=== PATIENT | male | born 1975 | race Hispanic/Latino ===

== ENCOUNTER 2019-12-29 10:37 | Emergency (ER) | payer SELFPAY ==
[2019-12-29] MEDS ORDERED: DIPHENHYDRAMINE 25 MG TAB/CAP ONE (11:47)
--- NOTE | 2019-12-29 12:01 | ER ---
Nurse's Notes [facility] Name: Ang Agrawal Age: 44 yrs Sex: Male : 1975 Arrival Date: 12/29/2019 Time: 10:40 Bed 17 Private MD: Diagnosis: Insect bite (nonvenomous) of right forearm Presentation: 12/28 11:12 Chief complaint: Patient states: thinks he was stung by an insect about an hour ago, iw has swollen red area to right forearm and has pain up into his arm pit. Coronavirus screen: At this time, the client does not indicate any symptoms associated with coronavirus-19. Ebola Screen: Patient negative for fever greater than or equal to 101.5 degrees Fahrenheit, and additional compatible Ebola Virus Disease symptoms Patient denies exposure to infectious person. Patient denies travel to an Ebola-affected area in the 21 days before illness onset. No symptoms or risks identified at this time. Initial Sepsis Screen: Does the patient meet any 2 criteria? No. Patient's initial sepsis screen is negative. Does the patient have a suspected source of infection? No. Patient's initial sepsis screen is negative. Risk Assessment: Do you want to hurt yourself or someone else? Patient reports no desire to harm self or others. Onset of symptoms was December 29, 2019. 11:12 Method Of Arrival: Ambulatory 11:12 Acuity: JUNIE 5 iw Triage Assessment: 12:37 Bite description: bite sustained to dorsal aspect of right forearm is from insect by an ll1 unknown animal, animal information: vaccination(s) is not applicable. General: Appears uncomfortable, Behavior is calm, cooperative. Historical: - Allergies: 11:14 No Known Allergies; - Home Meds: 11:14 None [Active]; iw - PMHx: 11:14 None; iw - PSHx: 11:14 None; iw - Immunization history:: Adult Immunizations. - Social history:: Smoking status: Patient denies any tobacco usage or history of. Screenin:36 Abuse screen: Denies threats or abuse. Nutritional screening: No deficits noted. ll1 Tuberculosis screening: No symptoms or risk factors identified. Fall Risk None identified. Total Lipscomb Fall Scale indicates No Risk (0-24 pts). Assessment: 11:30 General: Appears in no apparent distress. Behavior is calm, cooperative, appropriate ll1 for age. Pain: Complains of pain in dorsal aspect of right forearm Quality of pain is described as burning, aching, Pain began 2 hours ago. Neuro: No deficits noted. Cardiovascular: No deficits noted. Respiratory: No deficits noted. Derm: Skin is intact, has lesions on R FA Skin is pink, warm \T\ dry. Wound noted dorsal aspect of right forearm Wound is insect bite to R FA, skin is red, raised. + itching. Reports burning, pain. Injury Description: Bite. 12:30 Reassessment: Patient and/or family updated on plan of care and expected duration. Pain ll1 level reassessed. Patient is alert, oriented x 3, equal unlabored respirations, skin warm/dry/pink. Vital Signs: 11:12 BP 122 / 85; Pulse 76; Resp 16; Temp 98.3; Pulse Ox 100% on R/A; iw 12:32 BP 114 / 82; Pulse 62; Resp 16; Pulse Ox 100% ; ll1 12:52 BP 121 / 84; Pulse 68; Resp 17; ll1 ED Course: 10:40 Patient arrived in ED. mr 11:14 Triage completed. iw 11:14 Arm band placed on. iw 11:19 Duke Villanueva, CULTURE MEDIA LABORATORY ASSISTANT is PHCP. pm1 11:19 Adeel Joy MD is Attending Physician. pm1 11:22 Ta Chery, KAVEH is Primary Nurse. ll1 12:37 Patient has correct armband on for positive identification. Bed in low position. Call ll1 light in reach. Side rails up X 1. Pulse ox on. NIBP on. 12:53 No provider procedures requiring assistance completed. Patient did not have IV access ll1 during this emergency room visit. Administered Medications: 11:36 Drug: Benadryl 50 mg Route: PO; ll1 12:32 Follow up: Response: No adverse reaction; RASS: Alert and Calm (0) ll1 12:32 Drug: TORadol 60 mg Route: IM; Site: right vastus lateralis; ll1 12:52 Follow up: Response: No adverse reaction; Pain is decreased; RASS: Alert and Calm (0) ll1 Outcome: 12:01 Discharge ordered by . pm1 12:53 Patient left the ED. ll1 12:53 Discharged to home ambulatory. ll1 12:53 Condition: stable 12:53 Discharge instructions given to patient, Instructed on discharge instructions, follow up and referral plans. medication usage, Demonstrated understanding of instructions, follow-up care, medications, Prescriptions given X 1. Signatures: Priyanka Khan Irene RN RN iw Duke Villanueva, ES CULTURE MEDIA LABORATORY ASSISTANT pm1 Ta Chery RN RN ll1
--- NOTE | 2019-12-29 12:02 | EDPHYS ---
Physician Documentation [facility] Name: Ang Agrawal Age: 44 yrs Sex: Male : 1975 Arrival Date: 12/29/2019 Time: 10:40 Bed 17 Private MD: ED Physician Adeel Joy HPI: 12/28 11:31 This 44 yrs old Male presents to ER via Ambulatory with complaints of Insect pm1 Bite. 11:31 Onset: The symptoms/episode began/occurred 1 hour(s) ago. pm1 11:31 The patient's rash thought to be caused by insect bites. The rash is located on the pm1 dorsal aspect of right forearm. The rash can be described as raised. Associated signs and symptoms: Pertinent positives: pain radiation up right arm to the armpit. Severity of symptoms: in the emergency department the symptoms are unchanged. Treatment given at home: None. The patient has not experienced similar symptoms in the past. It is unknown whether or not the patient has recently seen a physician. Historical: - Allergies: 11:14 No Known Allergies; iw - Home Meds: 11:14 None [Active]; iw - PMHx: 11:14 None; iw - PSHx: 11:14 None; iw - Immunization history:: Adult Immunizations. - Social history:: Smoking status: Patient denies any tobacco usage or history of. ROS: 11:31 Constitutional: Negative for fever, chills, and weight loss, Cardiovascular: Negative pm1 for chest pain, palpitations, and edema, Respiratory: Negative for shortness of breath, cough, wheezing, and pleuritic chest pain, Abdomen/GI: Negative for abdominal pain, nausea, vomiting, diarrhea, and constipation, Back: Negative for injury and pain. 11:31 Neuro: Negative for headache, weakness, numbness, tingling, and seizure. 11:31 MS/extremity: Positive for pain, swelling, of the dorsal aspect of right forearm. 11:31 Skin: Positive for swelling, of the dorsal aspect of right forearm. Exam: 11:31 Constitutional: This is a well developed, well nourished patient who is awake, alert, pm1 and in no acute distress. Head/Face: Normocephalic, atraumatic. 11:31 Back: No spinal tenderness. No costovertebral tenderness. Full range of motion. 11:31 Cardiovascular: Exam negative for acute changes, Rate: normal, Rhythm: regular, Pulses: no pulse deficits are appreciated. 11:31 Respiratory: Exam negative for acute changes, respiratory distress, shortness of breath. 11:31 Skin: Appearance: normal except for affected area, rash a mild rash is noted, consistent with contact dermatitis, on the dorsal aspect of right forearm. 11:31 Neuro: Exam negative for acute changes, Orientation: is normal, Mentation: is normal, Motor: is normal, moves all fours. Vital Signs: 11:12 BP 122 / 85; Pulse 76; Resp 16; Temp 98.3; Pulse Ox 100% on R/A; iw 12:32 BP 114 / 82; Pulse 62; Resp 16; Pulse Ox 100% ; ll1 12:52 BP 121 / 84; Pulse 68; Resp 17; ll1 MDM: 11:19 Patient medically screened. pm1 11:31 ED course: Patient with picture of asp caterpillar that he smashed after it stung him pm1 in the right forearm. 11:45 Data reviewed: vital signs. Data interpreted: Pulse oximetry: on room air is 100 %. pm1 Interpretation: normal. 12:00 Counseling: I had a detailed discussion with the patient and/or guardian regarding: the pm1 historical points, exam findings, and any diagnostic results supporting the discharge/admit diagnosis, the need for outpatient follow up, to return to the emergency department if symptoms worsen or persist or if there are any questions or concerns that arise at home. 12:26 ED course: Patient reports continued pain with asp sting. Will order Toradol. pm1 Administered Medications: 11:36 Drug: Benadryl 50 mg Route: PO; ll1 12:32 Follow up: Response: No adverse reaction; RASS: Alert and Calm (0) ll1 12:32 Drug: TORadol 60 mg Route: IM; Site: right vastus lateralis; ll1 12:52 Follow up: Response: No adverse reaction; Pain is decreased; RASS: Alert and Calm (0) ll1 Disposition: 12/29 08:58 Co-signature as Attending Physician, Adeel Joy MD I agree with the assessment and kellen plan of care. Disposition: 12/29/19 12:01 Discharged to Home. Impression: Insect bite (nonvenomous) of right forearm. - Condition is Stable. - Discharge Instructions: Insect Bite. - Prescriptions for Benadryl 25 mg Oral Capsule - take 1 capsule by ORAL route every 6 hours As needed; 30 tablet. - Medication Reconciliation Form, Thank You Letter, Antibiotic Education, Prescription Opioid Use form. - Follow up: Emergency Department; When: As needed; Reason: Worsening of condition. Follow up: Private Physician; When: 2 - 3 days; Reason: Recheck today's complaints, Continuance of care, Re-evaluation by your physician. - Problem is new. - Symptoms have improved. Signatures: Adeel Joy MD MD cha Williams, Irene, RN RN iw Duke Villanueva NP [employer]ADLEY [employer]WMEMBER pm1 Ta Chery RN RN ll1 Corrections: (The following items were deleted from the chart) 12/28 12:53 12:01 12/29/2019 12:01 Discharged to Home. Impression: Insect bite (nonvenomous) of ll1 right forearm. Condition is Stable. Forms are Medication Reconciliation Form, Thank You Letter, Antibiotic Education, Prescription Opioid Use. Follow up: Emergency Department; When: As needed; Reason: Worsening of condition. Follow up: Private Physician; When: 2 - 3 days; Reason: Recheck today's complaints, Continuance of care, Re-evaluation by your physician. Problem is new. Symptoms have improved. pm1
[2019-12-29] MEDS ORDERED: KETOROLAC 30 MG/ML INJ ONE (12:41)
[2019-12-29 13:27] VITALS: TEMP 98.3; O2SAT 100
[2019-12-29 13:29] VITALS: BP 121/84
== END 2019-12-29 12:53 | disposition home or self-care (01) ==
LOC: ER 10:37
DX: S50.861A Insect bite (nonvenomous) of right forearm, initial encounter (principal)
CPT/HCPCS: 96372; 99283

== ENCOUNTER 2020-08-19 13:10 | Emergency (ER) | payer OTHER, SELFPAY ==
--- OUTSIDE RECORDS SUMMARY | 2020-08-19 13:14 | XMS REPORT | Continuity of Care Document ---
:1975 Author Organization [facility] t Address [address] [place] [address] Care Team Providers Name Role Phone Raghav GAMBOA Attending Clinician Problems This patient has no known problems. Allergies, Adverse Reactions, Alerts This patient has no known allergies or adverse reactions. Medications This patient has no known medications. Procedures This patient has no known procedures. Encounters Start End Encounter Admission Attending Care Care Encounter Source Date/Time Date/Time Type Type Clinicians Facility Department ID 2020-06-23 2020-06-23 Emergency Raghav COJESUS [id number] 06:35:00 07:57:00 [place] [id number] [place] [id number] [place] [id number] Results This patient has no known results.
--- NOTE | 2020-08-19 18:22 | ER ---
Nurse's Notes [facility] Name: Ang Agrawal Age: 45 yrs Sex: Male : 1975 Arrival Date: 08/19/2020 Time: 13:13 Bed External Waiting Private MD: Diagnosis: Presentation: 08/19 13:47 Chief complaint: Patient states: JAMES x 2 weeks, started in posterior left neck then jl7 traveled upward, denies dizziness, denies blurred vision, denies N/V/D, denies fever. Coronavirus screen: Client denies travel out of the [place] in the last 14 days. headache, Client presents with at least one sign or symptom that may indicate coronavirus-19. Standard/surgical mask placed on the client. Provider contacted for isolation considerations. Ebola Screen: No symptoms or risks identified at this time. Initial Sepsis Screen: Does the patient meet any 2 criteria? No. Patient's initial sepsis screen is negative. Does the patient have a suspected source of infection? No. Patient's initial sepsis screen is negative. Risk Assessment: Do you want to hurt yourself or someone else? Patient reports no desire to harm self or others. Onset of symptoms was August 02, 2020. Care prior to arrival: None. 13:47 Method Of Arrival: Ambulatory [facility] 13:47 Acuity: JUNIE 3 jl7 Historical: - Allergies: 13:50 No Known Allergies; jl7 - Home Meds: 13:50 None [Active]; jl7 - PMHx: 13:50 None; jl7 - PSHx: 13:50 None; jl7 - Immunization history:: Adult Immunizations unknown, Client reports having NOT received the Covid vaccine. - Social history:: Smoking status: Patient denies any tobacco usage or history of. Assessment: 17:19 Reassessment: Called to exam room from [facility]. No answer. Unable to locate patient. 18:20 Reassessment: Unable to locate patient. Appears to have eloped for reasons unknown. Vital Signs: 13:47 BP 134 / 93; Pulse 96; Resp 17; Temp 98; Pulse Ox 99% on R/A; Weight 90.72 kg (R); jl7 Height 6 ft. 0 in. (182.88 cm); Pain 8/10; 13:47 Body Mass Index 27.12 (90.72 kg, 182.88 cm) [facility] ED Course: 13:13 Patient arrived in ED. 13:49 Triage completed. [facility] 13:50 Arm band placed on right wrist. Patient placed in waiting room, Patient notified of [facility] wait time. 18:21 No provider procedures requiring assistance completed. ss Administered Medications: No medications were administered Outcome: 18:21 Eloped from waiting room. ss 18:21 Patient left the ED. ss Signatures: Jackeline Reed, RN RN Stephanie Mosquera, RN RN [email or web address] Balbina Nicole
[2020-08-19 18:26] VITALS: BP 134/93; TEMP 98; O2SAT 99
== END 2020-08-19 18:21 | disposition left against medical advice (07) ==
LOC: ER 13:10
DX: Z02.9 Encounter for administrative examinations, unspecified (principal)